=== PATIENT | male | born 1980 | race Caucasian/White ===

== ENCOUNTER 2017-07-18 16:42 | Inpatient (IN) | payer OTHER ==
[2017-07-18 17:51] VITALS: BMI 25.9
--- NOTE | 2017-07-18 21:43 | HP ---
COWS - Scale Resting Pulse: 0= [place] 80 or Below Sweatin=Flushed/Facial Moisture Restless Observation: 1= Difficult to Sit Still Pupil Size: 1= Pupils >than Normal Bone or Joint Aches: 1= Mild Discomfort Runny Nose/ Eye Tearin= Runny Nose/Eyes GI Upset > 30mins: 0= None Tremor Observation: 1= Tremor [place], Not Seen Yawning Observation: 1= 1-2x During Session Anxiety or Irritability: 2=Irritable/Anxious Goose Flesh Skin: 3=Piloerection COWS Score: [address] [facility] - HPI Chief Complaint: I feel sick Allergies/Adverse Reactions: Allergies Allergy/AdvReac Type Severity Reaction Status Date / Time Fish Containing Products Allergy Verified 07/18/17 20:37 History of Present Illness: 37 yo male with hx of IV heroin, nicoine, crack / cocaine, THC dependence is here seeking detox. PMHX: anxiety, depression, denies any other medical problems. Deies suicidal / homicidal ideaiton or suiicder attempts. Longest period of sobriety 9 years. Last detox 2 months ago at [facility]. Exam Limitations: No Limitations - Ebola screening Have you traveled outside of the country in the last 21 days: No Have you had contact with anyone from an Ebola affected area: No Have you been sick,other than usual withdrawal symptoms: No Do you have a fever: No - Review of Systems Constitutional: Chills, Loss of Appetite, Changes in sleep, Unintentional Wgt. Loss, Other (unkempt, reports last shower 1 month ago) EENT: reports: No Symptoms Reported Respiratory: reports: No Symptoms reported Cardiac: reports: No Symptoms Reported GI: reports: Constipated (last BM x 2 weeks ago), Poor Appetite, Poor Fluid Intake : reports: No Symptoms Reported Musculoskeletal: reports: Back Pain, Joint Pain Neuro: reports: Headache Endocrine: reports: Increased Thirst Hematology: reports: No Symptoms Reported Psychiatric: reports: Orientated x3, Depressed Other Systems: Reviewed and Negative Patient History - Patient Medical History Hx Anemia: No Hx Asthma: No Hx Chronic Obstructive Pulmonary Disease (COPD): No Hx Cancer: No Hx Cardiac Disorders: No Hx Congestive Heart Failure: No Hx Hypertension: No Hx Hypercholesterolemia: No Hx Pacemaker: No HX Cerebrovascular Accident: No Hx Seizures: No Hx Dementia: No Hx Diabetes: No Hx Gastrointestinal Disorders: No Hx Liver Disease: No Hx Genitourinary Disorders: No Hx Sexually Transmitted Disorders: No Hx Renal Disease (ESRD): No Hx Thyroid Disease: No Hx Human Immunodeficiency Virus (HIV): No (last tested 2 months ) Hx Hepatitis C: No Hx Depression: Yes Hx Suicide Attempt: No Hx Bipolar Disorder: No Hx Schizophrenia: No - Patient Surgical History Past Surgical History: No - PPD History Previous Implant?: No Documented Results: Negative w/o proof PPD to be Administered?: Yes - Reproductive History Patient is a Female of Child Bearing Age (11 -55 yrs old): No - Smoking Cessation Smoking history: Current every day smoker Aproximately how many cigarettes per day: 10 Hx Chewing Tobacco Use: No Initiated information on smoking cessation: Yes 'Breaking Loose' booklet given: 07/18/17 - Substance & Tx. History Hx Alcohol Use: Yes Hx Substance Use: Yes Substance Use Type: Alcohol, Cocaine, Marijuana Hx Substance Use Treatment: Yes (two months ago at [facility] ) - Substances Abused Heroin Route: Injection Frequency: Daily Amount used: 2 BUNDLE Age of first use: 16 Date of Last Use: 07/18/17 Crack Frequency: Daily Amount used: 2 BAGS Age of first use: 18 Date of Last Use: 07/17/17 Marijuana/Hashish Route: Smoking Frequency: Daily Amount used: 1 blunt Age of first use: 12 Date of Last Use: 07/18/17 Family Disease History - Family Disease History Family Disease History: Diabetes: Mother (alive), [place]: Father (, [place]), Other: Father, Mother Admission Physical Exam S - Vital Signs Vital Signs: Vital Signs - 24 hr 07/18/17 17:48 Temperature 98.3 F Pulse Rate 71 Respiratory 18 Rate Blood Pressure 103/71 - Physical General Appearance: Yes: Disheveled (unkempt), Anxious, Other (malodorous) HEENTM: Yes: EOMI, Hearing grossly Normal, Normal ENT Inspection, Normocephalic , Normal Voice, GILLES, Pharynx Normal, Tm's normal Respiratory: Yes: Chest Non-Tender, Lungs Clear, Normal Breath Sounds, No Respiratory Distress, No Accessory Muscle Use Neck: Yes: No masses,lesions,Nodules, Trachea in good position Breast: Yes: Breast Exam Deferred Cardiology: Yes: Regular Rhythm, Regular Rate Abdominal: Yes: Normal Bowel Sounds, Non Tender, Flat, Soft Genitourinary: Yes: Within Normal Limits Back: Yes: Normal Inspection Musculoskeletal: Yes: full range of Motion, Gait Steady, Pelvis Stable Extremities: Yes: Normal Capillary Refill, Normal Inspection, Normal Range of Motion, Non-Tender Neurological: Yes: clerk II-XII NML intact, Fully Oriented, Alert, Motor Strength 5/5, Normal Mood/Affect, Depressed Affect Integumentary: Yes: Normal Color, Warm, Moist, Track Hebert (bilateral forarms, no infection) Lymphatic: Yes: Within Normal Limits - Diagnostic (1) Nicotine dependence Current Visit: Yes Status: Acute Qualifiers: Nicotine product type: cigarettes (2) Opioid dependence with withdrawal Current Visit: Yes Status: Acute (3) Cocaine dependence Current Visit: Yes Status: Acute (4) Dehydration Current Visit: Yes Status: Acute (5) IV drug user Current Visit: Yes Status: Acute (6) Depression Current Visit: Yes Status: Acute Qualifiers: Depression Type: unspecified Qualified Code(s): F32.9 - Major depressive disorder, single episode, unspecified (7) Marijuana dependence Current Visit: Yes Status: Acute Cleared for Admission [facility] - Detox or Rehab [facility] Level of Care: Medically Managed Detox Regimen/Protocol: Methadone [facility] Breath Alcohol Content Breath Alcohol Content: 0 Urine Drug Screen - Results Drug Screen Negative: No Urine Drug Screen Results: THC-Marijuana, JANINE-Cocaine, OPI-Opiates
[2017-07-18] MEDS ORDERED: NICOTINE POLACRILEX 2 MG GUM BC PRN (21:48)
[2017-07-18] MEDS ORDERED: MAGNESIUM HYDROX 2400MG/30ML ORAL SUSPENSION 30 ML CUP PO PRN (21:48)
[2017-07-18] MEDS ORDERED: P-EPHED 60MG/TRIPROLIDI 2.5MG TABLET PO PRN (21:48)
[2017-07-18] MEDS ORDERED: MAG HYDROX/AL HYDROX/SIMETH 30 ML UNIT-DOSE CUP PO PRN (21:48)
[2017-07-18] MEDS ORDERED: LOPERAMIDE HCL 2 MG CAPSULE PO PRN (21:48)
[2017-07-18] MEDS ORDERED: ACETAMINOPHEN 325 MG TABLET (FP) PO PRN (21:48)
[2017-07-18] MEDS ORDERED: MENTHOL/PHENOL 1 EACH UD MM PRN (21:48)
[2017-07-18] MEDS ORDERED: IBUPROFEN 400 MG TABLET (FP) PO PRN (21:48)
[2017-07-18] MEDS ORDERED: MAGNESIUM CITRATE 300 ML BOTTLE PO PRN (21:48)
[2017-07-18] MEDS ORDERED: guaiFENesin/D-METHORPHAN HB 10 ML UNIT-DOSE CUPS PO PRN (21:48)
[2017-07-18] MEDS: diazePAM 5 MG TABLET PO PRN (22:28)
[2017-07-18] MEDS: THIAMINE HCL 100 MG TABLET (FP) PO SCH (22:28)
[2017-07-18] MEDS ORDERED: METHADONE HCL 10 MG TABLET (FOR DETOX USE ONLY) PO ONE ×2 (22:30→23:00)
[2017-07-19 03:08] LABS: URINE APPEARANCE TURBID; URINE BILIRUBIN NEGATIVE (<2.0 mg/dL); URINE BLOOD NEGATIVE (NEGATIVE); URINE COLOR AMBER; URINE GLUCOSE (UA) NEGATIVE (NEGATIVE); URINE KETONE TRACE (NEGATIVE); URINE LEUK ESTERASE NEGATIVE (NEGATIVE); URINE NITRITE NEGATIVE (NEGATIVE); URINE UROBILINOGEN 4.0 E.U/dl mg/dL (0.2-1.0)
[2017-07-19 03:16] LABS: URINE PROTEIN 1+ (NEGATIVE)
[2017-07-19 03:32] LABS: EPI CELLS RARE /HPF (FEW); URINE MUCUS MODERATE
--- NOTE | 2017-07-19 09:36 | PN ---
S COWS - Scale Resting Pulse: 0= [place] 80 or Below Sweatin= Chills/Flushing Restless Observation: 3= Extraneous Movement Pupil Size: 0= Normal to Room Light Bone or Joint Aches: 4=Acute Joint/Muscle Pain Runny Nose/ Eye Tearin= Nasal Congestion GI Upset > 30mins: 0= None Tremor Observation of Outstretched Hands: 1= Tremor [place], Not Seen Yawning Observation: 1= 1-2x During Session Anxiety or Irritability: 2=Irritable/Anxious Goose Flesh Skin: 0=Smooth Skin COWS Score: 13 S Progress Note (SOAP) Subjective: ANXIETY,SWEATS,FATIGUE. Objective: 07/19/17 09:36 Vital Signs Temperature 97 F L 07/19/17 06:21 Pulse Rate 65 07/19/17 06:21 Respiratory Rate 18 07/19/17 06:21 Blood Pressure 103/54 07/19/17 06:21 O2 Sat by Pulse Oximetry (%) Laboratory Last Values Urine Color [place] 07/18/17 23: Urine Appearance Turbid 07/18/17 23:19 Urine pH 5.0 (5.0-8.0) 07/18/17 23:19 Ur Specific [place] 1.032 (1.001-1.035) 07/18/17 23:19 Urine Protein 1+ (NEGATIVE) H 07/18/17 23:19 Urine Glucose (UA) Negative (NEGATIVE) 07/18/17 23:19 Urine Ketones Trace (NEGATIVE) H 07/18/17 23:19 Urine Blood Negative (NEGATIVE) 07/18/17 23:19 Urine Nitrite Negative (NEGATIVE) 07/18/17 23: Urine Bilirubin Negative (<2.0 mg/dL) 07/18/17 23:19 Urine Urobilinogen 4.0 e.u/dl mg/dL (0.2-1.0) 07/18/17 23:19 Ur Leukocyte Esterase Negative (NEGATIVE) 07/18/17 23:19 Urine WBC (Auto) None /hpf (3-5) 07/18/17 23:19 Urine RBC (Auto) 1 /hpf (0-3) 07/18/17 23:19 Ur Epithelial Cells Rare /HPF (FEW) 07/18/17 23: Urine Mucus Moderate 04/23/18 23:19 Assessment: 07/19/17 09:36 WITHDRAWAL SX Plan: CONTINUE DETOX. INCREASE PO FLUIDS.
[2017-07-19] MEDS ORDERED: METHADONE HCL 10 MG TABLET (FOR DETOX USE ONLY) PO ONE (10:00)
[2017-07-19] MEDS: diazePAM 5 MG TABLET PO PRN ×2 (10:03→22:27)
[2017-07-19] MEDS: NICOTINE 14 MG/24 HOURS TOPICAL PATCH TD SCH (10:04)
[2017-07-19] MEDS: PRENATAL VITAMINS W/ FOLIC ACID TABLET (FP) PO SCH (10:04)
[2017-07-19 10:21] LABS: HEMATOCRIT 44.4 % (35.4-49); HEMOGLOBIN 15.2 GM/dL (11.7-16.9); MCH 32.4 pg (25.7-33.7); MCHC 34.2 g/dl (32.0-35.9); MEAN CELL VOLUME 94.6 fl (80-96); MEAN PLT VOLUME 11.7 fl (7.5-11.1); PLATELET COUNT 247 K/MM3 (134-434); RBC 4.69 M/mm3 (4.00-5.60); RDW 14.4 % (11.9-15.9); WHITE BLOOD COUNT 5.8 K/mm3 (4.0-10.0)
--- NOTE | 2017-07-19 10:25 | EKG ---
Test Reason : Blood Pressure : / mmHG Vent. Rate : 067 BPM Atrial Rate : 067 BPM P-R Int : 130 ms QRS Dur : 084 ms QT Int : 370 ms P-R-T Axes : 040 007 -20 degrees QTc Int : 390 ms NORMAL SINUS RHYTHM SEPTAL INFARCT , AGE UNDETERMINED ABNORMAL ECG NO PREVIOUS ECGS AVAILABLE Confirmed by MD URSULA, ERNESTINE ([id number]) on 07/19/2017 10:25:10 AM Referred By: Confirmed By:ERNESTINE VERGARA MD
[2017-07-19 11:10] LABS: CHLORIDE 103 mmol/L (98-107); POTASSIUM 3.9 mmol/L (3.5-5.1); SODIUM 138 mmol/L (136-145)
[2017-07-19 11:17] LABS: ALBUMIN 3.3 g/dl (3.4-5.0); ALK PHOS 99 U/L (45-117); ANION GAP 5 (8-16); BILIRUBIN,TOTAL 0.4 mg/dL (0.2-1.0); BLOOD UREA NITROGEN 17 mg/dL (7-18); CALCIUM 8.7 mg/dL (8.5-10.1); CO2 30 mmol/L (21-32); GLUCOSE,RANDOM 107 mg/dL (74-106); SGOT/AST 30 U/L (15-37); SGPT/ALT 52 U/L (12-78)
--- NOTE | 2017-07-19 18:46 | CONSULT ---
[facility] Psychiatric Consult - Data Date of interview: 07/19/17 Admission source: [facility] Identifying data: First admission to [facility] for this 37 y/o AA male seeking detox treatment on for heroin,cannabis and cocaine (crack) dependence.Patient is ,a father of ine,homeless,unemployed and deprived of any source of income. Substance Abuse History: Confirmed by patient in this interview.Details in current [facility] report : Smoking history: Current every day smoker. Aproximately how many cigarettes per day: 10. Hx Chewing Tobacco Use: No. Initiated information on smoking cessation: Yes. 'Breaking Loose' booklet given: . - Substance & Tx. History. Hx Alcohol Use: Yes. Hx Substance Use: Yes. Substance Use Type: Alcohol, Cocaine, Marijuana. Hx Substance Use Treatment: Yes (two months ago at [facility] ). - Substances Abused. Heroin. Route: Injection. Frequency: Daily. Amount used: 2 BUNDLE. Age of first use: 16. Date of Last Use: 07/18/17. Crack. Frequency: Daily. Amount used: 2 BAGS. Age of first use: 18. Date of Last Use: 07/17/17. Marijuana/ Hashish. Route: Smoking. Frequency: Daily. Amount used: 1 blunt. Age of first use: 12. Date of Last Use: 07/18/17 Medical History: Patient endorses good general health. Psychiatric History: Patient denies. Physical/Sexual Abuse/Trauma History: Patient denies. Additional Comment: Urine Drug Screen Results: THC-Marijuana, JANINE-Cocaine, OPI- Opiates.Noted. Mental Status Exam - Mental Status Exam Alert and Oriented to: Time, Place, Person Cognitive Function: Good Patient Appearance: Unkempt, Disheveled Mood: Nervous, Withdrawn Affect: Mood Congruent Patient Behavior: Fatigued, Cooperative Speech Pattern: Clear Voice Loudness: Normal Thought Process: Goal Oriented Thought Disorder: Not Present Hallucinations: Denies Suicidal Ideation: Denies Homicidal Ideation: Denies Insight/Judgement: Poor Sleep: Well Appetite: Good Muscle strength/Tone: Normal Gait/Station: Normal Psychiatric Findings - Problem List ([place] 1, 2,3) (1) Opioid dependence with withdrawal Current Visit: Yes Status: Acute (2) Cocaine dependence Current Visit: Yes Status: Acute Qualifiers: Substance use status: uncomplicated Qualified Code(s): F14.20 - Cocaine dependence, uncomplicated (3) Marijuana dependence Current Visit: Yes Status: Acute (4) Nicotine dependence Current Visit: Yes Status: Acute Qualifiers: Nicotine product type: cigarettes Substance use status: in withdrawal Qualified Code(s): F17.213 - Nicotine dependence, cigarettes, with withdrawal - Initial Treatment Plan Initial Treatment Plan: Psychoeducation.Detoxification in progress.Observation.
[2017-07-19] MEDS: THIAMINE HCL 100 MG TABLET (FP) PO SCH (22:27)
[2017-07-20] MEDS: diazePAM 5 MG TABLET PO PRN ×2 (09:16→22:12)
[2017-07-20] MEDS ORDERED: METHADONE HCL 5 MG TABLET (FOR DETOX USE ONLY) PO ONE (10:00)
[2017-07-20] MEDS: PRENATAL VITAMINS W/ FOLIC ACID TABLET (FP) PO SCH (10:16)
[2017-07-20] MEDS: NICOTINE 14 MG/24 HOURS TOPICAL PATCH TD SCH (10:17)
--- NOTE | 2017-07-20 11:06 | PN ---
BHS COWS - Scale Resting Pulse: 0= [place] 80 or Below Sweatin= Chills/Flushing Restless Observation: 3= Extraneous Movement Pupil Size: 2= Moderately Dilated Bone or Joint Aches: 4=Acute Joint/Muscle Pain Runny Nose/ Eye Tearin= Nasal Congestion GI Upset > 30mins: 0= None Tremor Observation of Outstretched Hands: 2= Slight Tremor Visible Yawning Observation: 0= None Anxiety or Irritability: 1=Feels Anxious/Irritable Goose Flesh Skin: 0=Smooth Skin COWS Score: 14 BHS Progress Note (SOAP) Subjective: ANXIETY,TREMORS,MUSCLE/JOINT PAINS, INTERMITTENT SLEEP. ALERT O X 3. Objective: 07/20/17 11:06 Vital Signs Temperature 97.4 F L 07/20/17 10:00 Pulse Rate 75 07/20/17 10:00 Respiratory Rate 20 07/20/17 10:00 Blood Pressure 103/66 07/20/17 10:00 O2 Sat by Pulse Oximetry (%) Laboratory Last Values WBC 5.8 K/mm3 (4.0-10.0) 07/19/17 07:30 RBC 4.69 M/mm3 (4.00-5.60) 07/19/17 07:30 Hgb 15.2 GM/dL (11.7-16.9) 07/19/17 07:30 Hct 44.4 % (35.4-49) 07/19/17 07:30 MCV 94.6 fl (80-96) 07/19/17 07:30 MCH 32.4 pg (25.7-33.7) 07/19/17 07:30 MCHC 34.2 g/dl (32.0-35.9) 07/19/17 07:30 RDW 14.4 % (11.9-15.9) 07/19/17 07:30 Plt Count 247 K/MM3 (134-434) 07/19/17 07:30 MPV 11.7 fl (7.5-11.1) H 07/19/17 07:30 Sodium 138 mmol/L (136-145) 07/19/17 07:30 Potassium 3.9 mmol/L (3.5-5.1) 07/19/17 07:30 Chloride 103 mmol/L (98-107) 07/19/17 07:30 Carbon Dioxide 30 mmol/L (21-32) 07/19/17 07:30 Anion Gap 5 (8-16) L 07/19/17 07:30 BUN 17 mg/dL (7-18) 07/19/17 07:30 Creatinine 1.0 mg/dL (0.7-1.3) 07/19/17 07:30 Creat Clearance w eGFR > 60 (>60) 07/19/17 07:30 Random Glucose 107 mg/dL (74-106) H 07/19/17 07:30 Calcium 8.7 mg/dL (8.5-10.1) 07/19/17 07:30 Total Bilirubin 0.4 mg/dL (0.2-1.0) 07/19/17 07:30 AST 30 U/L (15-37) 07/19/17 07:30 ALT 52 U/L (12-78) 07/19/17 07:30 Alkaline Phosphatase 99 U/L (45-117) 07/19/17 07:30 Total Protein 7.0 g/dl (6.4-8.2) 07/19/17 07:30 Albumin 3.3 g/dl (3.4-5.0) L 07/19/17 07:30 Urine Color [place] 07/18/17 23:19 Urine Appearance Turbid 07/18/17 23:19 Urine pH 5.0 (5.0-8.0) 07/18/17 23:19 Ur Specific [place] 1.032 (1.001-1.035) 07/18/17 23:19 Urine Protein 1+ (NEGATIVE) H 07/18/17 23:19 Urine Glucose (UA) Negative (NEGATIVE) 07/18/17 23:19 Urine Ketones Trace (NEGATIVE) H 07/18/17 23:19 Urine Blood Negative (NEGATIVE) 07/18/17 23: Urine Nitrite Negative (NEGATIVE) 07/18/17 23: Urine Bilirubin Negative (<2.0 mg/dL) 07/18/17 23:19 Urine Urobilinogen 4.0 e.u/dl mg/dL (0.2-1.0) 07/18/17 23:19 Ur Leukocyte Esterase Negative (NEGATIVE) 07/18/17 23:19 Urine WBC (Auto) None /hpf (3-5) 07/18/17 23:19 Urine RBC (Auto) 1 /hpf (0-3) 07/18/17 23:19 Ur Epithelial Cells Rare /HPF (FEW) 07/18/17 23:19 Urine Mucus Moderate 07/18/17 23:19 RPR Titer Nonreactive (NONREACTIVE) 07/19/17 07:30 HIV 1&2 Antibody Screen Negative 07/19/17 07:30 HIV P24 Antigen Negative 07/19/17 07:30 Assessment: 07/20/17 11:06 WITHDRAWAL SX Plan: CONTINUE DETOX
[2017-07-20] MEDS: THIAMINE HCL 100 MG TABLET (FP) PO SCH (22:12)
[2017-07-20] MEDS: MELATONIN 5 MG TABLETS PO PRN (22:54)
[2017-07-21] MEDS: diazePAM 5 MG TABLET PO PRN ×3 (08:24→21:09)
[2017-07-21] MEDS ORDERED: METHADONE HCL 5 MG TABLET (FOR DETOX USE ONLY) PO ONE (10:00)
[2017-07-21] MEDS: NICOTINE 14 MG/24 HOURS TOPICAL PATCH TD SCH (10:30)
[2017-07-21] MEDS: PRENATAL VITAMINS W/ FOLIC ACID TABLET (FP) PO SCH (10:30)
--- NOTE | 2017-07-21 10:57 | PN ---
BHS Progress Note (SOAP) Subjective: SLIGHT ANXIETY,SWEATS. Objective: 07/21/17 11:02 Vital Signs Temperature 97.2 F L 07/21/17 06:10 Pulse Rate 69 07/21/17 06:10 Respiratory Rate 18 07/21/17 06:10 Blood Pressure 101/53 07/21/17 06:10 O2 Sat by Pulse Oximetry (%) Laboratory Last Values WBC 5.8 K/mm3 (4.0-10.0) 07/19/17 07:30 RBC 4.69 M/mm3 (4.00-5.60) 07/19/17 07:30 Hgb 15.2 GM/dL (11.7-16.9) 07/19/17 07:30 Hct 44.4 % (35.4-49) 07/19/17 07:30 MCV 94.6 fl (80-96) 07/19/17 07:30 MCH 32.4 pg (25.7-33.7) 07/19/17 07:30 MCHC 34.2 g/dl (32.0-35.9) 07/19/17 07:30 RDW 14.4 % (11.9-15.9) 07/19/17 07:30 Plt Count 247 K/MM3 (134-434) 07/19/17 07:30 MPV 11.7 fl (7.5-11.1) H 07/19/17 07:30 Sodium 138 mmol/L (136-145) 07/19/17 07:30 Potassium 3.9 mmol/L (3.5-5.1) 07/19/17 07:30 Chloride 103 mmol/L (98-107) 07/19/17 07:30 Carbon Dioxide 30 mmol/L (21-32) 07/19/17 07:30 Anion Gap 5 (8-16) L 07/19/17 07:30 BUN 17 mg/dL (7-18) 07/19/17 07:30 Creatinine 1.0 mg/dL (0.7-1.3) 07/19/17 07:30 Creat Clearance w eGFR > 60 (>60) 07/19/17 07:30 Random Glucose 107 mg/dL (74-106) H 07/19/17 07:30 Calcium 8.7 mg/dL (8.5-10.1) 07/19/17 07:30 Total Bilirubin 0.4 mg/dL (0.2-1.0) 07/19/17 07:30 AST 30 U/L (15-37) 07/19/17 07:30 ALT 52 U/L (12-78) 07/19/17 07:30 Alkaline Phosphatase 99 U/L (45-117) 07/19/17 07:30 Total Protein 7.0 g/dl (6.4-8.2) 07/19/17 07:30 Albumin 3.3 g/dl (3.4-5.0) L 07/19/17 07:30 Urine Color [place] 07/18/17 23:19 Urine Appearance Turbid 07/18/17 23:19 Urine pH 5.0 (5.0-8.0) 07/18/17 23:19 Ur Specific [place] 1.032 (1.001-1.035) 07/18/17 23:19 Urine Protein 1+ (NEGATIVE) H 07/18/17 23:19 Urine Glucose (UA) Negative (NEGATIVE) 07/18/17 23:19 Urine Ketones Trace (NEGATIVE) H 07/18/17 23:19 Urine Blood Negative (NEGATIVE) 07/18/17 23:19 Urine Nitrite Negative (NEGATIVE) 07/18/17 23:19 Urine Bilirubin Negative (<2.0 mg/dL) 07/18/17 23:19 Urine Urobilinogen 4.0 e.u/dl mg/dL (0.2-1.0) 07/18/17 23:19 Ur Leukocyte Esterase Negative (NEGATIVE) 07/18/17 23:19 Urine WBC (Auto) None /hpf (3-5) 07/18/17 23:19 Urine RBC (Auto) 1 /hpf (0-3) 07/18/17 23:19 Ur Epithelial Cells Rare /HPF (FEW) 07/18/17 23:19 Urine Mucus Moderate 07/18/17 23:19 RPR Titer Nonreactive (NONREACTIVE) 07/19/17 07:30 HIV 1&2 Antibody Screen Negative 07/19/17 07:30 HIV P24 Antigen Negative 07/19/17 07:30 Assessment: 07/21/17 11:02 WITHDRAWAL SX Plan: CONTINUE DETOX
[2017-07-21] MEDS: hydrOXYzine PAMOATE 50 MG CAPSULE (FP) PO PRN (13:51)
[2017-07-21] MEDS: MELATONIN 5 MG TABLETS PO PRN (22:04)
[2017-07-21] MEDS: THIAMINE HCL 100 MG TABLET (FP) PO SCH (22:04)
[2017-07-22] MEDS ORDERED: METHADONE HCL 10 MG TABLET (FOR DETOX USE ONLY) PO ONE (10:00)
[2017-07-22] MEDS: PRENATAL VITAMINS W/ FOLIC ACID TABLET (FP) PO SCH (10:05)
[2017-07-22] MEDS: NICOTINE 14 MG/24 HOURS TOPICAL PATCH TD SCH (10:05)
--- NOTE | 2017-07-22 10:21 | PN ---
[facility] Progress Note (SOAP) Subjective: DETOX PROCEEDING PER PROTOCOL.SLIGHT ANXIETY BUT DECREASED W/S. ALERT O X 3.NAD. Objective: 07/22/17 10:19 Vital Signs Temperature 96.4 F L 07/22/17 09:04 Pulse Rate 69 07/22/17 09:04 Respiratory Rate 18 07/22/17 09:04 Blood Pressure 94/52 07/22/17 09:04 O2 Sat by Pulse Oximetry (%) Laboratory Last Values WBC 5.8 K/mm3 (4.0-10.0) 07/19/17 07:30 RBC 4.69 M/mm3 (4.00-5.60) 07/19/17 07:30 Hgb 15.2 GM/dL (11.7-16.9) 07/19/17 07:30 Hct 44.4 % (35.4-49) 07/19/17 07:30 MCV 94.6 fl (80-96) 07/19/17 07:30 MCH 32.4 pg (25.7-33.7) 07/19/17 07:30 MCHC 34.2 g/dl (32.0-35.9) 07/19/17 07:30 RDW 14.4 % (11.9-15.9) 07/19/17 07:30 Plt Count 247 K/MM3 (134-434) 07/19/17 07:30 MPV 11.7 fl (7.5-11.1) H 07/19/17 07:30 Sodium 138 mmol/L (136-145) 07/19/17 07:30 Potassium 3.9 mmol/L (3.5-5.1) 07/19/17 07:30 Chloride 103 mmol/L (98-107) 07/19/17 07:30 Carbon Dioxide 30 mmol/L (21-32) 07/19/17 07:30 Anion Gap 5 (8-16) L 07/19/17 07:30 BUN 17 mg/dL (7-18) 07/19/17 07:30 Creatinine 1.0 mg/dL (0.7-1.3) 07/19/17 07:30 Creat Clearance w eGFR > 60 (>60) 07/19/17 07:30 Random Glucose 107 mg/dL (74-106) H 07/19/17 07:30 Calcium 8.7 mg/dL (8.5-10.1) 07/19/17 07:30 Total Bilirubin 0.4 mg/dL (0.2-1.0) 07/19/17 07:30 AST 30 U/L (15-37) 07/19/17 07:30 ALT 52 U/L (12-78) 07/19/17 07:30 Alkaline Phosphatase 99 U/L (45-117) 07/19/17 07:30 Total Protein 7.0 g/dl (6.4-8.2) 07/19/17 07:30 Albumin 3.3 g/dl (3.4-5.0) L 07/19/17 07:30 Urine Color [place] 07/18/17 23:19 Urine Appearance Turbid 07/18/17 23:19 Urine pH 5.0 (5.0-8.0) 07/18/17 23:19 Ur Specific [place] 1.032 (1.001-1.035) 07/18/17 23:19 Urine Protein 1+ (NEGATIVE) H 07/18/17 23:19 Urine Glucose (UA) Negative (NEGATIVE) 07/18/17 23:19 Urine Ketones Trace (NEGATIVE) H 07/18/17 23:19 Urine Blood Negative (NEGATIVE) 07/18/17 23:19 Urine Nitrite Negative (NEGATIVE) 07/18/17 23:19 Urine Bilirubin Negative (<2.0 mg/dL) 07/18/17 23:19 Urine Urobilinogen 4.0 e.u/dl mg/dL (0.2-1.0) 07/18/17 23:19 Ur Leukocyte Esterase Negative (NEGATIVE) 07/18/17 23:19 Urine WBC (Auto) None /hpf (3-5) 07/18/17 23:19 Urine RBC (Auto) 1 /hpf (0-3) 07/18/17 23:19 Ur Epithelial Cells Rare /HPF (FEW) 07/18/17 23:19 Urine Mucus Moderate 07/18/17 23:19 RPR Titer Nonreactive (NONREACTIVE) 07/19/17 07:30 HIV 1&2 Antibody Screen Negative 07/19/17 07:30 HIV P24 Antigen Negative 07/19/17 07:30 Assessment: 07/22/17 10:20 SLIGHT WITHDRAWAL SX Plan: CONTINUE DETOX
[2017-07-22] MEDS: hydrOXYzine PAMOATE 50 MG CAPSULE (FP) PO PRN (13:50)
[2017-07-22] MEDS: THIAMINE HCL 100 MG TABLET (FP) PO SCH (22:37)
[2017-07-23] MEDS ORDERED: METHADONE HCL 5 MG TABLET (FOR DETOX USE ONLY) PO ONE (06:00)
[2017-07-23 09:29] VITALS: BP 103/64; PULSE 73; TEMP 97
--- NOTE | 2017-07-23 21:22 | PN ---
S Progress Note (SOAP) Subjective: Patient denies current Detox symptoms and reports that he feels well overall.
--- NOTE | 2017-07-23 21:29 | DS ---
[facility] Detox Discharge Summary Admission Date: 07/18/17 Discharge Date: 07/23/17 - History Present History: Cannabis Dependence, Cocaine Dependence, Opioid Dependence Additional Comments: PATIENT GOING TO [facility] ([place], [place] PATIENT WILL PURSUE AFTERCARE PROGRAM WHILE THERE. PATIENT WAS DISCHARGED FROM DETOX UNIT IN STABLE MEDICAL CONDITION. Pertinent Past History: Depression, Nicotine Dependence, Dehydration. - Physical Exam Results Vital Signs: Vital Signs Temperature 97.0 F L 07/23/17 09:28 Pulse Rate 73 07/23/17 09:28 Respiratory Rate 18 07/23/17 09:28 Blood Pressure 103/64 07/23/17 09:28 O2 Sat by Pulse Oximetry (%) Pertinent Admission Physical Exam Findings: WITHDRAWAL SYMPTOMS. Laboratory Tests 07/18/17 07/19/17 07/19/17 23:19 07:30 07:30 WBC 5.8 RBC 4.69 Hgb 15.2 Hct 44.4 MCV 94.6 MCH 32.4 MCHC 34.2 RDW 14.4 Plt Count 247 MPV 11.7 H Sodium Potassium Chloride Carbon Dioxide Anion Gap BUN Creatinine Creat Clearance w eGFR Random Glucose Calcium Total Bilirubin AST ALT Alkaline Phosphatase Total Protein Albumin Urine Color [place] Urine Appearance Turbid Urine pH 5.0 Ur Specific [place] 1.032 Urine Protein 1+ H Urine Glucose (UA) Negative Urine Ketones Trace H Urine Blood Negative Urine Nitrite Negative Urine Bilirubin Negative Urine Urobilinogen 4.0 e.u/dl Ur Leukocyte Esterase Negative Urine WBC (Auto) None Urine RBC (Auto) 1 Ur Epithelial Cells Rare Urine Mucus Moderate RPR Titer HIV 1&2 Antibody Screen Negative HIV P24 Antigen Negative 07/19/17 07/19/17 07:30 07:30 WBC RBC Hgb Hct MCV MCH MCHC RDW Plt Count MPV Sodium 138 Potassium 3.9 Chloride 103 Carbon Dioxide 30 Anion Gap 5 L BUN 17 Creatinine 1.0 Creat Clearance w eGFR > 60 Random Glucose 107 H Calcium 8.7 Total Bilirubin 0.4 AST 30 ALT 52 Alkaline Phosphatase 99 Total Protein 7.0 Albumin 3.3 L Urine Color Urine Appearance Urine pH Ur Specific [place] Urine Protein Urine Glucose (UA) Urine Ketones Urine Blood Urine Nitrite Urine Bilirubin Urine Urobilinogen Ur Leukocyte Esterase Urine WBC (Auto) Urine RBC (Auto) Ur Epithelial Cells Urine Mucus RPR Titer Nonreactive HIV 1&2 Antibody Screen HIV P24 Antigen LABS NOTED. - Treatment Hospital Course: Detox Protocol Followed, Detoxed Safely, Responded well, Discharged Condition Good Patient has Accepted a Rehab Referral to: PT GOING TO [facility] ([place] - Medication Discharge Medications: Ambulatory Orders NK [No Known Home Medication] 07/18/17 - Diagnosis (1) Cocaine dependence Status: Acute Qualifiers: Substance use status: uncomplicated Qualified Code(s): F14.20 - Cocaine dependence, uncomplicated (2) Dehydration Status: Acute (3) Depression Status: Acute Qualifiers: Depression Type: unspecified Qualified Code(s): F32.9 - Major depressive disorder, single episode, unspecified (4) IV drug user Status: Acute (5) Marijuana dependence Status: Acute (6) Nicotine dependence Status: Acute Qualifiers: Nicotine product type: cigarettes Substance use status: in withdrawal Qualified Code(s): F17.213 - Nicotine dependence, cigarettes, with withdrawal (7) Opioid dependence with withdrawal Status: Acute - AMA Did Patient Leave Against Medical Advice: No
== END 2017-07-23 09:36 | disposition home or self-care (01) | DRG 773 ==
LOC: YASAS 16:42 → Y3N 20:30
PROVIDERS: ADMIT Internal Medicine; ATTEND Internal Medicine
PROC: HZ2ZZZZ Detoxification Services for Substance Abuse Treatment (ICD-10-PCS; principal; 2017-07-18)
DX: F11.23 Opioid dependence with withdrawal (principal); F14.20 Cocaine dependence, uncomplicated; F12.20 Cannabis dependence, uncomplicated; F17.213 Nicotine dependence, cigarettes, with withdrawal; F32.9 Major depressive disorder, single episode, unspecified; E86.0 Dehydration; Z91.013 Allergy to seafood; Z59.0 Homelessness
CPT/HCPCS: 36415; 80053; 81003; 81015; 85027; 86593; 87389; 93005; 93010

== ENCOUNTER 2017-11-16 16:15 | Inpatient (IN) | payer OTHER ==
[2017-11-16 17:59] VITALS: BMI 26.6
--- NOTE | 2017-11-16 21:43 | HP ---
COWS - Scale Resting Pulse: 0= [place] 80 or Below Sweatin=Flushed/Facial Moisture Restless Observation: 0= Sits Still Pupil Size: 0= Normal to Room Light Bone or Joint Aches: 4=Acute Joint/Muscle Pain Runny Nose/ Eye Tearin= None GI Upset > 30mins: 1= Stomach Cramp Tremor Observation: 2= Slight Tremor Visible Yawning Observation: 0= None Anxiety or Irritability: 2=Irritable/Anxious Goose Flesh Skin: 3=Piloerection COWS Score: 14 Admission ROS [facility] Chief Complaint: Heroin withdrawal symptoms Allergies/Adverse Reactions: Allergies Allergy/AdvReac Type Severity Reaction Status Date / Time Fish Containing Products Allergy Verified 11/16/17 21:27 History of Present Illness: 37 years old male with a long history of heroin dependence is seeking admission to detox. Patient has been in previous detox at [facility] and reports 9 months of sobriety. He has medical history of anxiety and depression. He denies suicide attempt and suicidal ideation at this time. Exam Limitations: No Limitations - Ebola screening Have you traveled outside of the country in the last 21 days: No (N) Have you had contact with anyone from an Ebola affected area: No Have you been sick,other than usual withdrawal symptoms: No Do you have a fever: No - Review of Systems Constitutional: Chills, Malaise, Night Sweats, Changes in sleep EENT: reports: Nose Congestion Respiratory: reports: No Symptoms reported Cardiac: reports: No Symptoms Reported GI: reports: Nausea, Poor Appetite, Poor Fluid Intake, Abdominal cramping : reports: No Symptoms Reported Musculoskeletal: reports: No Symptoms Reported Integumentary: reports: No Symptoms Reported Neuro: reports: No Symptoms reported, Tremors Endocrine: reports: No Symptoms Reported Hematology: reports: No Symptoms Reported Psychiatric: reports: Anxious, Depressed Other Systems: Reviewed and Negative Patient History - Patient Medical History Hx Anemia: No Hx Asthma: No Hx Chronic Obstructive Pulmonary Disease (COPD): No Hx Cancer: No Hx Cardiac Disorders: No Hx Congestive Heart Failure: No Hx Hypertension: No Hx Hypercholesterolemia: No Hx Pacemaker: No HX Cerebrovascular Accident: No Hx Seizures: No Hx Dementia: No Hx Diabetes: No Hx Gastrointestinal Disorders: No Hx Liver Disease: No Hx Genitourinary Disorders: No Hx Sexually Transmitted Disorders: No Hx Renal Disease (ESRD): No Hx Thyroid Disease: No Hx Human Immunodeficiency Virus (HIV): No (last tested 2 months ) Hx Hepatitis C: No Hx Depression: Yes (Not on medication) Hx Suicide Attempt: No Hx Bipolar Disorder: No Hx Schizophrenia: No Other Medical History: Anxiety - Not on medication - Patient Surgical History Past Surgical History: No - PPD History Previous Implant?: Yes Documented Results: Negative w/o proof Implanted On Prior R Admission?: No Date: 07/20/17 PPD to be Administered?: Yes - Reproductive History Patient is a Female of Child Bearing Age (11 -55 yrs old): No (MALE) - Smoking Cessation Smoking history: Current every day smoker Have you smoked in the past 12 months: Yes Aproximately how many cigarettes per day: 10 Hx Chewing Tobacco Use: No Initiated information on smoking cessation: Yes 'Breaking Loose' booklet given: 11/16/17 - Substances Abused Heroin Route: Injection Frequency: Daily Amount used: 2 BUNDLE Age of first use: 16 Date of Last Use: 11/16/17 Marijuana/Hashish Route: Smoking Frequency: Daily Amount used: 2 BUNDLE Age of first use: 12 Date of Last Use: 11/16/17 Family Disease History - Family Disease History Family Disease History: Diabetes: Mother (alive), CA: Father (, [place]), Other: Father, Mother Admission Physical Exam S - Vital Signs Vital Signs: Vital Signs - 24 hr 11/16/17 17:56 Temperature 97.7 F Pulse Rate 60 Respiratory 18 Rate Blood Pressure 100/62 - Physical General Appearance: Yes: Moderate Distress HEENTM: Yes: EOMI, Normal ENT Inspection, Normocephalic, Normal Voice Respiratory: Yes: Lungs Clear, Normal Breath Sounds, No Respiratory Distress Neck: Yes: Supple Breast: Yes: Breast Exam Deferred Cardiology: Yes: Regular Rhythm, Regular Rate Abdominal: Yes: Normal Bowel Sounds, Soft Genitourinary: Yes: Within Normal Limits Back: Yes: Normal Inspection Extremities: Yes: Tremors Neurological: Yes: medical grade shoemaker II-XII NML intact, Alert, Normal Mood/Affect Integumentary: Yes: Warm Lymphatic: Yes: Within Normal Limits - Diagnostic (1) Anxiety Current Visit: Yes Status: Chronic (2) Depression Current Visit: Yes Status: Chronic Qualifiers: Depression Type: unspecified Qualified Code(s): F32.9 - Major depressive disorder, single episode, unspecified (3) Nicotine dependence Current Visit: Yes Status: Chronic Qualifiers: Nicotine product type: cigarettes Substance use status: in withdrawal Qualified Code(s): F17.213 - Nicotine dependence, cigarettes, with withdrawal (4) Opioid dependence with withdrawal Current Visit: Yes Status: Chronic Cleared for Admission [facility] - Detox or Rehab [facility] Level of Care: Medically Managed Detox Regimen/Protocol: Librium S Breath Alcohol Content Breath Alcohol Content: 0 Urine Drug Screen - Results Drug Screen Negative: No Urine Drug Screen Results: THC-Marijuana, JANINE-Cocaine, OPI-Opiates, MTD- Methadone, OXY-Oxycodone
[2017-11-16] MEDS ORDERED: P-EPHED 60MG/TRIPROLIDI 2.5MG TABLET PO PRN (21:49)
[2017-11-16] MEDS ORDERED: MAG HYDROX/AL HYDROX/SIMETH 30 ML UNIT-DOSE CUP PO PRN (21:49)
[2017-11-16] MEDS ORDERED: LOPERAMIDE HCL 2 MG CAPSULE PO PRN (21:49)
[2017-11-16] MEDS ORDERED: METHADONE HCL 10 MG TABLET (FOR DETOX USE ONLY) PO ONE ×2 (21:49→23:00)
[2017-11-16] MEDS ORDERED: MAGNESIUM CITRATE 300 ML BOTTLE PO PRN (21:49)
[2017-11-16] MEDS ORDERED: MENTHOL/PHENOL 1 EACH UD MM PRN (21:49)
[2017-11-16] MEDS ORDERED: IBUPROFEN 400 MG TABLET (FP) PO PRN (21:49)
[2017-11-16] MEDS ORDERED: ACETAMINOPHEN 325 MG TABLET (FP) PO PRN (21:49)
[2017-11-16] MEDS ORDERED: MAGNESIUM HYDROX 2400MG/30ML ORAL SUSPENSION 30 ML CUP PO PRN (21:49)
[2017-11-16] MEDS ORDERED: NICOTINE POLACRILEX 2 MG GUM BC PRN (21:49)
[2017-11-16] MEDS ORDERED: guaiFENesin/D-METHORPHAN HB 10 ML UNIT-DOSE CUPS PO PRN (21:49)
[2017-11-16] MEDS ORDERED: MELATONIN 5 MG TABLETS PO PRN (22:00)
[2017-11-16] MEDS: diazePAM 5 MG TABLET PO PRN (23:16)
[2017-11-16] MEDS: THIAMINE HCL 100 MG TABLET (FP) PO SCH (23:16)
[2017-11-16 23:19] LABS: URINE APPEARANCE TURBID; URINE BILIRUBIN NEGATIVE (<2.0 mg/dL); URINE GLUCOSE (UA) NEGATIVE (NEGATIVE); URINE KETONE NEGATIVE (NEGATIVE); URINE LEUK ESTERASE NEGATIVE (NEGATIVE); URINE NITRITE NEGATIVE (NEGATIVE); URINE PROTEIN NEGATIVE (NEGATIVE)
[2017-11-16 23:29] LABS: URINE COLOR YELLOW
--- NOTE | 2017-11-17 07:35 | CONSULT ---
[facility] Psychiatric Consult - Data Date of interview: 11/17/17 Admission source: [facility] Identifying data: 37 years old male with a long history of heroin dependence is seeking admission to detox. Patient has been in previous detox at [facility] and reports 9 months of sobriety. He has medical history of anxiety and depression. He denies suicide attempt and suicidal ideation at this time Substance Abuse History: Smoking history: Current every day smoker. Have you smoked in the past 12 months: Yes. Aproximately how many cigarettes per day: 10. Hx Chewing Tobacco Use: No. Initiated information on smoking cessation: Yes. 'Breaking Loose' booklet given: 11/16/17. - Substances Abused. Heroin. Route: Injection. Frequency: Daily. Amount used: 2 BUNDLE. Age of first use: 16. Date of Last Use: 11/16/17. Marijuana/Hashish. Route: Smoking. Frequency: Daily. Amount used: 2 BUNDLE. Age of first use: 12. Date of Last Use: 11/16/17 Medical History: Denies significant medical issues Psychiatric History: Patient reports history of anxiety and depression, denies suicidal, homicidal history, reporets no medications taking prior to admission Physical/Sexual Abuse/Trauma History: Denies Additional Comment: Observation. Detox Unit Care Protocol Mental Status Exam - Mental Status Exam Alert and Oriented to: Person Cognitive Function: Fair Patient Appearance: Unkempt Mood: Sad Affect: Flat Patient Behavior: Sedated Speech Pattern: Delayed Voice Loudness: Mildly Soft/Quiet Thought Process: Circumstantial Thought Disorder: Being Controlled Hallucinations: Denies Suicidal Ideation: Denies Homicidal Ideation: Denies Insight/Judgement: Fair Sleep: Difficulty falling asleep Appetite: Weight loss Muscle strength/Tone: Mild Hypotonicity Gait/Station: Shuffling Additional Comments: Observation. Detox Unit Care Protocol Psychiatric Findings - Problem List ([place] 1, 2,3) (1) Substance induced mood disorder Current Visit: Yes Status: Acute (2) Opioid dependence with withdrawal Current Visit: Yes Status: Chronic (3) Cocaine dependence Current Visit: No Status: Acute Qualifiers: Substance use status: uncomplicated Qualified Code(s): F14.20 - Cocaine dependence, uncomplicated (4) Marijuana dependence Current Visit: No Status: Acute - Initial Treatment Plan Initial Treatment Plan: Observation. Detox Unit Care Protocol
[2017-11-17] MEDS ORDERED: METHADONE HCL 10 MG TABLET (FOR DETOX USE ONLY) PO ONE (10:00)
[2017-11-17 10:15] LABS: HEMATOCRIT 46.3 % (35.4-49); HEMOGLOBIN 15.8 GM/dL (11.7-16.9); MCH 31.5 pg (25.7-33.7); MCHC 34.1 g/dl (32.0-35.9); MEAN CELL VOLUME 92.4 fl (80-96); MEAN PLT VOLUME 10.8 fl (7.5-11.1); PLATELET COUNT 228 K/MM3 (134-434); RBC 5.01 M/mm3 (4.00-5.60); RDW 13.7 % (11.9-15.9)
[2017-11-17] MEDS: PRENATAL VITAMINS W/ FOLIC ACID TABLET (FP) PO SCH (10:29)
[2017-11-17] MEDS: diazePAM 5 MG TABLET PO PRN (10:29)
[2017-11-17] MEDS: NICOTINE 14 MG/24 HOURS TOPICAL PATCH TD SCH (10:29)
[2017-11-17 10:31] LABS: ALBUMIN 3.1 g/dl (3.4-5.0); ANION GAP 5 MMOL/L (8-16); BLOOD UREA NITROGEN 7 mg/dL (7-18); CALCIUM 8.6 mg/dL (8.5-10.1); CHLORIDE 102 mmol/L (98-107); CO2 33 mmol/L (21-32); GLUCOSE,RANDOM 88 mg/dL (74-106); POTASSIUM 4.2 mmol/L (3.5-5.1); SGOT/AST 25 U/L (15-37); SGPT/ALT 40 U/L (12-78); SODIUM 140 mmol/L (136-145)
[2017-11-17 10:32] LABS: ALK PHOS 92 U/L (45-117); BILIRUBIN,TOTAL 0.3 mg/dL (0.2-1.0)
--- NOTE | 2017-11-17 11:28 | PN ---
[facility] COWS - Scale Resting Pulse: 0= [place] 80 or Below Sweatin= Chills/Flushing Restless Observation: 3= Extraneous Movement Pupil Size: 1= Pupils >than Normal Bone or Joint Aches: 2= Severe Diffuse Aches Runny Nose/ Eye Tearin= Runny Nose/Eyes GI Upset > 30mins: 2= Nausea/Diarrhea Tremor Observation of Outstretched Hands: 2= Slight Tremor Visible Yawning Observation: 1= 1-2x During Session Anxiety or Irritability: 2=Irritable/Anxious Goose Flesh Skin: 0=Smooth Skin COWS Score: 16 S Progress Note (SOAP) Subjective: alert,irritable,anxious,interrupted sleep,tremor,pain in the back Objective: 11/17/17 11:24 Vital Signs Temperature 97.8 F 11/17/17 09:29 Pulse Rate 51 L 11/17/17 09:29 Respiratory Rate 19 11/17/17 09:29 Blood Pressure 90/60 11/17/17 09:29 O2 Sat by Pulse Oximetry (%) ekg sinus bradtcardia with sinus arrhythmia,rate 46,invertedt in lead 3 qt/qtc 404/353 no chest pain,no sob,no dizziness Laboratory Last Values WBC 6.0 K/mm3 (4.0-10.0) 11/17/17 07:40 RBC 5.01 M/mm3 (4.00-5.60) 11/17/17 07:40 Hgb 15.8 GM/dL (11.7-16.9) 11/17/17 07:40 Hct 46.3 % (35.4-49) 11/17/17 07:40 MCV 92.4 fl (80-96) 11/17/17 07:40 MCH 31.5 pg (25.7-33.7) 11/17/17 07:40 MCHC 34.1 g/dl (32.0-35.9) 11/17/17 07:40 RDW 13.7 % (11.9-15.9) 11/17/17 07:40 Plt Count 228 K/MM3 (134-434) 11/17/17 07:40 MPV 10.8 fl (7.5-11.1) 11/17/17 07:40 Sodium 140 mmol/L (136-145) 11/17/17 07:40 Potassium 4.2 mmol/L (3.5-5.1) 11/17/17 07:40 Chloride 102 mmol/L (98-107) 11/17/17 07:40 Carbon Dioxide 33 mmol/L (21-32) H 11/17/17 07:40 Anion Gap 5 MMOL/L (8-16) L 11/17/17 07:40 BUN 7 mg/dL (7-18) 11/17/17 07:40 Creatinine 1.0 mg/dL (0.7-1.3) 11/17/17 07:40 Creat Clearance w eGFR > 60 (>60) 11/17/17 07:40 Random Glucose 88 mg/dL (74-106) 11/17/17 07:40 Calcium 8.6 mg/dL (8.5-10.1) 11/17/17 07:40 Total Bilirubin 0.3 mg/dL (0.2-1.0) 11/17/17 07:40 AST 25 U/L (15-37) 11/17/17 07:40 ALT 40 U/L (12-78) D 11/17/17 07:40 Alkaline Phosphatase 92 U/L (45-117) 11/17/17 07:40 Total Protein 7.0 g/dl (6.4-8.2) 11/17/17 07:40 Albumin 3.1 g/dl (3.4-5.0) L 11/17/17 07:40 Urine Color Yellow 11/16/17 21:59 Urine Appearance Turbid 11/16/17 21:59 Urine pH 5.0 (5.0-8.0) 11/16/17 21:59 Ur Specific [place] 1.028 (1.001-1.035) 11/16/17 21:59 Urine Protein Negative (NEGATIVE) 11/16/17 21:59 Urine Glucose (UA) Negative (NEGATIVE) 11/16/17 21:59 Urine Ketones Negative (NEGATIVE) 11/16/17 21:59 Urine Blood Negative (NEGATIVE) 11/16/17 21:59 Urine Nitrite Negative (NEGATIVE) 11/16/17 21:59 Urine Bilirubin Negative (<2.0 mg/dL) 11/16/17 21:59 Urine Urobilinogen 2.0 mg/dL (0.2-1.0) 11/16/17 21:59 Ur Leukocyte Esterase Negative (NEGATIVE) 11/16/17 21:59 11/17/17 11:28 rpr pending Assessment: 11/17/17 11:28 withdrawal symptom Plan: continue detox
[2017-11-17] MEDS ORDERED: CYCLOBENZAPRINE HCL 10 MG TABLET (FP) PO PRN (11:52)
--- NOTE | 2017-11-17 16:02 | EKG ---
Test Reason : Blood Pressure : / mmHG Vent. Rate : 046 BPM Atrial Rate : 046 BPM P-R Int : 128 ms QRS Dur : 076 ms QT Int : 404 ms P-R-T Axes : 045 007 -01 degrees QTc Int : 353 ms SINUS BRADYCARDIA WITH MARKED SINUS ARRHYTHMIA SEPTAL INFARCT (CITED ON OR BEFORE 18-JUL-2017) ABNORMAL ECG WHEN COMPARED WITH ECG OF 18-JUL-2017 22:33, QUESTIONABLE CHANGE IN INITIAL FORCES OF SEPTAL LEADS Confirmed by Yasmeen Taylor ([id number]) on 11/17/2017 4:02:00 PM Referred By: Confirmed By:Yasmeen Taylor
[2017-11-18] MEDS: cloNIDine HCL 0.1 MG TABLET PO SCH ×3 (00:05→22:55)
[2017-11-18] MEDS: THIAMINE HCL 100 MG TABLET (FP) PO SCH ×2 (00:05→22:55)
[2017-11-18] MEDS: diazePAM 5 MG TABLET PO PRN ×2 (06:27→20:15)
[2017-11-18] MEDS ORDERED: METHADONE HCL 5 MG TABLET (FOR DETOX USE ONLY) PO ONE (10:00)
[2017-11-18] MEDS: PRENATAL VITAMINS W/ FOLIC ACID TABLET (FP) PO SCH (11:19)
[2017-11-18] MEDS: NICOTINE 14 MG/24 HOURS TOPICAL PATCH TD SCH (11:19)
--- NOTE | 2017-11-18 11:23 | PN ---
[facility] COWS - Scale Resting Pulse: 0= [place] 80 or Below Sweatin= Chills/Flushing Restless Observation: 3= Extraneous Movement Pupil Size: 1= Pupils >than Normal Bone or Joint Aches: 2= Severe Diffuse Aches Runny Nose/ Eye Tearin= Nasal Congestion GI Upset > 30mins: 2= Nausea/Diarrhea Tremor Observation of Outstretched Hands: 2= Slight Tremor Visible Yawning Observation: 1= 1-2x During Session Anxiety or Irritability: 2=Irritable/Anxious Goose Flesh Skin: 0=Smooth Skin COWS Score: 15 BHS Progress Note (SOAP) Subjective: alert,irritable,anxious,interrupted sleep,tremor,pain in the body and back Objective: 11/18/17 11:22 Vital Signs Temperature 97.8 F 11/18/17 10:00 Pulse Rate 61 11/18/17 10:00 Respiratory Rate 18 11/18/17 10:00 Blood Pressure 120/74 11/18/17 10:00 O2 Sat by Pulse Oximetry (%) Laboratory Last Values WBC 6.0 K/mm3 (4.0-10.0) 11/17/17 07:40 RBC 5.01 M/mm3 (4.00-5.60) 11/17/17 07:40 Hgb 15.8 GM/dL (11.7-16.9) 11/17/17 07:40 Hct 46.3 % (35.4-49) 11/17/17 07:40 MCV 92.4 fl (80-96) 11/17/17 07:40 MCH 31.5 pg (25.7-33.7) 11/17/17 07:40 MCHC 34.1 g/dl (32.0-35.9) 11/17/17 07:40 RDW 13.7 % (11.9-15.9) 11/17/17 07:40 Plt Count 228 K/MM3 (134-434) 11/17/17 07:40 MPV 10.8 fl (7.5-11.1) 11/17/17 07:40 Sodium 140 mmol/L (136-145) 11/17/17 07:40 Potassium 4.2 mmol/L (3.5-5.1) 11/17/17 07:40 Chloride 102 mmol/L (98-107) 11/17/17 07:40 Carbon Dioxide 33 mmol/L (21-32) H 11/17/17 07:40 Anion Gap 5 MMOL/L (8-16) L 11/17/17 07:40 BUN 7 mg/dL (7-18) 11/17/17 07:40 Creatinine 1.0 mg/dL (0.7-1.3) 11/17/17 07:40 Creat Clearance w eGFR > 60 (>60) 11/17/17 07:40 Random Glucose 88 mg/dL (74-106) 11/17/17 07:40 Calcium 8.6 mg/dL (8.5-10.1) 11/17/17 07:40 Total Bilirubin 0.3 mg/dL (0.2-1.0) 11/17/17 07:40 AST 25 U/L (15-37) 11/17/17 07:40 ALT 40 U/L (12-78) D 11/17/17 07:40 Alkaline Phosphatase 92 U/L (45-117) 11/17/17 07:40 Total Protein 7.0 g/dl (6.4-8.2) 11/17/17 07:40 Albumin 3.1 g/dl (3.4-5.0) L 11/17/17 07:40 Urine Color Yellow 11/16/17 21:59 Urine Appearance Turbid 11/16/17 21:59 Urine pH 5.0 (5.0-8.0) 11/16/17 21:59 Ur Specific [place] 1.028 (1.001-1.035) 11/16/17 21:59 Urine Protein Negative (NEGATIVE) 11/16/17 21:59 Urine Glucose (UA) Negative (NEGATIVE) 11/16/17 21:59 Urine Ketones Negative (NEGATIVE) 11/16/17 21:59 Urine Blood Negative (NEGATIVE) 11/16/17 21:59 Urine Nitrite Negative (NEGATIVE) 11/16/17 21:59 Urine Bilirubin Negative (<2.0 mg/dL) 11/16/17 21:59 Urine Urobilinogen 2.0 mg/dL (0.2-1.0) 11/16/17 21:59 Ur Leukocyte Esterase Negative (NEGATIVE) 11/16/17 21:59 RPR Titer Nonreactive (NONREACTIVE) 11/17/17 07:40 Assessment: 11/18/17 11:23 withdrawal symptom Plan: continue detox
--- NOTE | 2017-11-19 08:57 | PN ---
S Progress Note Note: Patient moved to 3 N following verbal altercation with another patient, no physical contact with patient but staff unable to redirect. Move is to prevent ongoing event that may become violent.
[2017-11-19] MEDS: NICOTINE 14 MG/24 HOURS TOPICAL PATCH TD SCH (09:12)
[2017-11-19] MEDS: PRENATAL VITAMINS W/ FOLIC ACID TABLET (FP) PO SCH (09:13)
[2017-11-19] MEDS: cloNIDine HCL 0.1 MG TABLET PO SCH (09:21)
[2017-11-19 09:45] VITALS: BP 102/66; PULSE 86; TEMP 98.2
[2017-11-19] MEDS ORDERED: METHADONE HCL 5 MG TABLET (FOR DETOX USE ONLY) PO ONE (10:00)
--- NOTE | 2017-11-19 14:21 | PN ---
BHS Progress Note (SOAP) Subjective: PATIENT JUST TRANSFERRED TO UNIT 3 NORTH AFTER ALTERCATION WITH OTHER PATIENT ON THAT UNIT. Patient reports Tremors, Constipation, and Sweating. Objective: PATIENT A & O X 2 (UNCERTAIN ABOUT CURRENT DAY / DATE). PATIENT OBSERVED AMBULATING ON UNIT. NO ACUTE DISTRESS. 11/19/17 14:20 Vital Signs Temperature 98.2 F 11/19/17 09:45 Pulse Rate 86 11/19/17 09:45 Respiratory Rate 18 11/19/17 09:45 Blood Pressure 102/66 11/19/17 09:45 O2 Sat by Pulse Oximetry (%) Laboratory Tests 11/16/17 11/17/17 11/17/17 21:59 07:40 07:40 WBC 6.0 RBC 5.01 Hgb 15.8 Hct 46.3 MCV 92.4 MCH 31.5 MCHC 34.1 RDW 13.7 Plt Count 228 MPV 10.8 Sodium 140 Potassium 4.2 Chloride 102 Carbon Dioxide 33 H Anion Gap 5 L BUN 7 Creatinine 1.0 Creat Clearance w eGFR > 60 Random Glucose 88 Calcium 8.6 Total Bilirubin 0.3 AST 25 ALT 40 D Alkaline Phosphatase 92 Total Protein 7.0 Albumin 3.1 L Urine Color Yellow Urine Appearance Turbid Urine pH 5.0 Ur Specific [place] 1.028 Urine Protein Negative Urine Glucose (UA) Negative Urine Ketones Negative Urine Blood Negative Urine Nitrite Negative Urine Bilirubin Negative Urine Urobilinogen 2.0 Ur Leukocyte Esterase Negative RPR Titer 11/17/17 07:40 WBC RBC Hgb Hct MCV MCH MCHC RDW Plt Count MPV Sodium Potassium Chloride Carbon Dioxide Anion Gap BUN Creatinine Creat Clearance w eGFR Random Glucose Calcium Total Bilirubin AST ALT Alkaline Phosphatase Total Protein Albumin Urine Color Urine Appearance Urine pH Ur Specific [place] Urine Protein Urine Glucose (UA) Urine Ketones Urine Blood Urine Nitrite Urine Bilirubin Urine Urobilinogen Ur Leukocyte Esterase RPR Titer Nonreactive LABS NOTED. Assessment: 11/19/17 14:20 WITHDRAWAL SYMPTOMS. Plan: CONTINUE DETOX.
--- NOTE | 2017-11-19 14:22 | DS ---
[facility] Detox Discharge Summary Admission Date: 11/16/17 Discharge Date: 11/19/17 - History Present History: Cannabis Dependence, Cocaine Dependence, Opioid Dependence Additional Comments: PATIENT DOES NOT WISH TO REMAIN TO COMPLETE DETOX REGIMEN. RISKS OF LEAVING DETOX UNIT AGAINST MEDICAL ADVICE AND PRIOR TO COMPLETION OF DETOX REGIMEN EXPLAINED TO PATIENT. PATIENT ADVISED TO GO IMMEDIATELY TO NEAREST ER SHOULD ANY INTOLERABLE DETOX SYMPTOMS DEVELOP AT ANY TIME. PATIENT LEFT DETOX UNIT IN STABLE MEDICAL CONDITION. Pertinent Past History: History of Depression, Anxiety, Nicotine Dependence, - Physical Exam Results Vital Signs: Vital Signs Temperature 98.2 F 11/19/17 09:45 Pulse Rate 86 11/19/17 09:45 Respiratory Rate 18 11/19/17 09:45 Blood Pressure 102/66 11/19/17 09:45 O2 Sat by Pulse Oximetry (%) Pertinent Admission Physical Exam Findings: WITHDRAWAL SYMPTOMS. Laboratory Tests 11/16/17 11/17/17 11/17/17 21:59 07:40 07:40 WBC 6.0 RBC 5.01 Hgb 15.8 Hct 46.3 MCV 92.4 MCH 31.5 MCHC 34.1 RDW 13.7 Plt Count 228 MPV 10.8 Sodium 140 Potassium 4.2 Chloride 102 Carbon Dioxide 33 H Anion Gap 5 L BUN 7 Creatinine 1.0 Creat Clearance w eGFR > 60 Random Glucose 88 Calcium 8.6 Total Bilirubin 0.3 AST 25 ALT 40 D Alkaline Phosphatase 92 Total Protein 7.0 Albumin 3.1 L Urine Color Yellow Urine Appearance Turbid Urine pH 5.0 Ur Specific [place] 1.028 Urine Protein Negative Urine Glucose (UA) Negative Urine Ketones Negative Urine Blood Negative Urine Nitrite Negative Urine Bilirubin Negative Urine Urobilinogen 2.0 Ur Leukocyte Esterase Negative RPR Titer 11/17/17 07:40 WBC RBC Hgb Hct MCV MCH MCHC RDW Plt Count MPV Sodium Potassium Chloride Carbon Dioxide Anion Gap BUN Creatinine Creat Clearance w eGFR Random Glucose Calcium Total Bilirubin AST ALT Alkaline Phosphatase Total Protein Albumin Urine Color Urine Appearance Urine pH Ur Specific [place] Urine Protein Urine Glucose (UA) Urine Ketones Urine Blood Urine Nitrite Urine Bilirubin Urine Urobilinogen Ur Leukocyte Esterase RPR Titer Nonreactive LABS NOTED. - Treatment Hospital Course: Detoxed Safely - Medication Discharge Medications: Ambulatory Orders NK [No Known Home Medication] 07/18/17 - AMA Did Patient Leave Against Medical Advice: Yes (PATIENT DID NOT WISH TO REMAIN ON UNIT TO COMPLETE DETOX REGIMEN.)
[2017-11-20] MEDS ORDERED: METHADONE HCL 10 MG TABLET (FOR DETOX USE ONLY) PO ONE (10:00)
[2017-11-21] MEDS ORDERED: METHADONE HCL 5 MG TABLET (FOR DETOX USE ONLY) PO ONE (06:00)
== END 2017-11-19 11:28 | disposition left against medical advice (07) | DRG 770 ==
LOC: YASAS 16:15 → Y6N 19:22 → Y3N 11-19 09:16
PROVIDERS: ADMIT Surgery; ATTEND Surgery
PROC: HZ2ZZZZ Detoxification Services for Substance Abuse Treatment (ICD-10-PCS; principal; 2017-11-16)
DX: F11.23 Opioid dependence with withdrawal (principal); F14.20 Cocaine dependence, uncomplicated; F12.20 Cannabis dependence, uncomplicated; F17.213 Nicotine dependence, cigarettes, with withdrawal; F19.24 Other psychoactive substance dependence with psychoactive substance-induced mood disorder; F41.9 Anxiety disorder, unspecified; F32.9 Major depressive disorder, single episode, unspecified; R00.1 Bradycardia, unspecified; I49.9 Cardiac arrhythmia, unspecified; Z91.013 Allergy to seafood
CPT/HCPCS: 36415; 80053; 81003; 85027; 86593; 93005; 93010; J0735